=== PATIENT | male | born 1985 | race Two or more races ===

== ENCOUNTER 2025-01-04 15:26 | Emergency (ER) | payer OTHER ==
[~2025-01-04] VITALS: Ht 185.4 cm; Wt 104.0 kg
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
[2025-01-04 16:11] VITALS: BP 130/93; PULSE 77; RESP 16; TEMP 98; O2SAT 98
== END 2025-01-04 16:12 ==
LOC: ER 15:27
DX: Z02.89 Encounter for other administrative examinations (principal); V49.40XA Driver injured in collision with unspecified motor vehicles in traffic accident, initial encounter; Y93.89 Activity, other specified; Y92.89 Other specified places as the place of occurrence of the external cause; Y99.8 Other external cause status
CPT/HCPCS: 99283